=== PATIENT | female | born 1965 | race Caucasian/White ===

== ENCOUNTER 2020-01-24 13:45 | Inpatient (IN) | payer OTHER ==
[2020-01-25] MEDS ORDERED: TYLENOL325 MG PO (09:24)
[2020-01-25] MEDS ORDERED: ALEVE220 MG PO (09:24)
--- NOTE | 2020-01-26 06:46 | PATH ---
[facility] [address] [facility] [place], [place] [address] Signed ORDERING PHYSICIAN: Jose D Kumar MD PATIENT NAME: FRANCINE GILLIS GENDER: F : 1965 SPECIMEN(S): No Source Given MOLECULAR PATHOLOGY RESULTS: SARS-CoV-2 Not Detected ADDITIONAL NOTES.: The Stephenson Fusion SARS-CoV-2 Assay is a multiplex real-time PCR (RT-PCR) in vitro diagnostic test intended for the qualitative detection of RNA from SARS-CoV-2 from individuals who meet COVID-19 clinical and/or epidemiological criteria. In general, SARS-CoV-2 RNA can be detected during the acute phase of infection. Positive results indicate the presence of SARS-CoV-2 RNA. Clinical correlation with patient history and other diagnostic information is necessary to determine patient infection status. Positive results do not rule out bacterial infection or co-infection with other viruses. Negative results do not preclude SARS-CoV-2 infection and should not be used as the sole basis for patient management decisions. Negative results must be combined with other clinical observations, patient history, and epidemiological information. The Stephenson Fusion SARS-CoV-2 Assay is not yet approved or cleared by the [place] FDA. When there are no FDA-approved or cleared tests available, and other criteria are met, FDA can make tests available under an emergency access mechanism called an Emergency Use Authorization (EUA). The EUA for this test is supported by the [place] of Health and Human Service's (HHS's) declaration that circumstances exist to justify the emergency use of in vitro diagnostics for the detection and/or diagnosis of the virus that causes COVID-19. This EUA will remain in effect for the duration of the COVID-19 declaration justifying emergency of IVDs, unless it is terminated or revoked by FDA, after which the test may no longer be used. The Stephenson Fusion SARS-CoV-2 Assay is for use only under EUA in US laboratories certified under the Clinical Laboratory Improvement Amendments of 1988 (CLIA) to perform high complexity tests. [facility] is certified under CLIA to perform high complexity PATIENT NAME: FRANCINE GILLIS VASYL PATHOLOGY DATE OF : [birth year] REPORT #: [id number] PHYSICIAN: RADHA PANDYA PCP: ANGELICA BELTRAN REPORT IS CONFIDENTIAL AND NOT TO BE RELEASED WITHOUT AUTHORIZATION [address] [address] Signed clinical laboratory testing. PERFORMING LABORATORY.: Molecular testing was performed by [facility] [address] [place], [place] [address] [address] ([employer]oner: Marcelo Forte D.O.; CLIA#: [id number]) Diagnostician: System Interface Pathologist Electronically Signed 01/26/2020 Copies: ~ PATIENT NAME: FRANCINE GILLIS VASYL PATHOLOGY DATE OF : [birth year] REPORT #: [id number] PHYSICIAN: RADHA PANDYA PCP: ANGELICA BELTRAN REPORT IS CONFIDENTIAL AND NOT TO BE RELEASED WITHOUT AUTHORIZATION
--- NOTE | 2020-01-26 14:49 | HP ---
[facility] [address] [place], [place] [address] Signed ADMISSION DATE: 01/24/2020 REASON FOR ADMISSION: Acute calculous cholecystitis and possible choledocholithiasis. HISTORY OF PRESENT ILLNESS: This is a 54-year-old white woman, lives in the [place], [place] area. She is known to have gallstones from the past. She recently presented to Dr. Beltran in [place] and subsequently seen today by Dr. Jaramillo as she has had the right subcostal pain and findings typical of biliary colic. Liver enzymes were checked yesterday and repeated today. Previously, the liver enzymes were reasonably normal, but today markedly abnormal with elevated bilirubin of 4.4 and an alkaline phosphatase greater than 600 based on report I have from Dr. Jaramillo. Actual data is still pending. The patient has had no particular nausea or vomiting. Does have persistent epigastric and right subcostal pain. She does have family history of biliary disease in her daughter on whom I performed cholecystectomy several years ago when the daughter was age 15. The patient has had ureteral vaginal prolapse, undergoing a sling repair based on notes I have available from 2005. This involved Dr. Sadie Gillis and Dr. Molina Giron. At present, she denies any shortness of breath or chest pain. She has had no dysuria or hematuria. Her pain is primarily in the right subcostal area and the subscapular area on the right side. SOCIAL HISTORY: She is accompanied by a friend. She lives in [place]. She has adult children. PHYSICAL EXAMINATION: GENERAL: A pleasant white woman, who does not look systemically toxic at all. I do not detect clinical jaundice myself at this time. HEENT: Mucous membranes are slightly dry. Trachea is midline. She has no thyromegaly or cervical adenopathy and no hoarseness. CHEST: Clear. HEART: Regular without murmur. ABDOMEN: Obese. Palpation reveals mild tenderness in the subcostal and the epigastric area. There is no ascites. There is no mass. EXTREMITIES: Show no clubbing, cyanosis, or edema. Electronically Signed By: BERTHA COTE MD 01/26/20 1449 PATIENT NAME: FRANCINE GILLIS HISTORY AND PHYSICAL DATE OF : 63 REPORT #: [id number] PHYSICIAN: BERTHA COTE MD PCP: ANGELICA BELTRAN REPORT IS CONFIDENTIAL AND NOT TO BE RELEASED WITHOUT AUTHORIZATION [facility] [address] [place], [place] [address] Signed LABORATORY STUDIES: From [place] performed yesterday and today are pending. By recollection of her bilirubin being 4.4 today is certain. Alkaline phosphatase is markedly elevated as well. She brings with her a disk of the images of her gallbladder ultrasound. Notes are made that there was no sign of intrahepatic ductal dilatation. The gallbladder did have stones. Common duct size is 4.4 mm to my recollection. ASSESSMENT: The patient has clinical evidence of acute calculous cholecystitis at minimum and probable choledocholithiasis. I discussed with her at great length including using illustrations on her marker board. The pathophysiology of biliary disease as relates to gallstones and the high probability that she has passed stones in the common duct, though she may have passed them through even. Her amylase was noted to be normal. She has no clinical evidence of pancreatitis at this time. At this point, given the late hour of the day at 7:00 p.m. and we will give additional fluid resuscitation, IV antibiotic Ancef, anticipating operation tomorrow, this would include laparoscopic cholecystectomy with cholangiogram, possible laparoscopic common duct exploration. She may require an open procedure for cholecystectomy and/or common duct exploration. The risks of bleeding, infection, bile duct injury, need for open procedure and other unforeseen complications was reviewed in detail. Most certainly, we will have labs done in the morning, particularly Chem profile and CBC and also we will obtain amylase. Improvement of her liver enzymes and bilirubin would be a most welcome finding and suggestive of possible spontaneous clearance of the duct. We will allow clear liquids up to midnight, but after that, n.p.o. We will initiate antibiotic therapy. She does have underlying acute calculous cholecystitis as well. MD JALEESA Bender/MODL /[id number] Electronically Signed By: BERTHA COTE MD 01/26/20 1449 PATIENT NAME: FRANCINE GILLIS HISTORY AND PHYSICAL DATE OF : [birth year] REPORT #: [id number] PHYSICIAN: BERTHA COTE MD PCP: ANGELICA BELTRAN A REPORT IS CONFIDENTIAL AND NOT TO BE RELEASED WITHOUT AUTHORIZATION [address] [address] Signed cc: MD Dr. Kali Garcia Copies: MOLINA JARAMILLO MD ~ Electronically Signed By: BERTHA COTE MD 01/26/20 1449 PATIENT NAME: FRANCINE GILLIS VASYL HISTORY AND PHYSICAL DATE OF : [birth year] REPORT #: [id number] PHYSICIAN: BERTHA COTE MD PCP: ANGELICA BELTRAN REPORT IS CONFIDENTIAL AND NOT TO BE RELEASED WITHOUT AUTHORIZATION
--- NOTE | 2020-01-26 14:49 | OR ---
[facility] [address] [place], [place] [address] Signed DATE OF OPERATION: 01/25/2020 SURGEON: Bertha Cote MD PREOPERATIVE DIAGNOSIS: Acute calculous cholecystitis and probable choledocholithiasis. POSTOPERATIVE DIAGNOSES: 1. 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 2. Very short cystic duct and white bile in gallbladder with multiple impacted stones. 3. Dense inflammatory changes of bryant hepatis. 4. Enlarged pericholedochal lymph node. PROCEDURES: 1. Laparoscopy for laparoscopic cholecystectomy with conversion to open cholecystectomy with intraoperative cholangiogram (prolonged complicated and difficult). 2. Common bile duct exploration. 3. Flexible choledochoscopy with common bile duct biopsy. 4. Placement of T-tube with cholangiogram. ANESTHESIA: General endotracheal; Lv [place] CRNA INDICATIONS: This 54-year-old white woman was referred by Dr. Jaramillo yesterday with findings of markedly elevated liver enzymes, complaints of right upper abdominal pain and back pain, which has been episodic and progressive over quite some time. She does have clinical onset of jaundice. Her bilirubin was 4.4, now about 3.8. She did have elevated liver enzymes including AST, ALT, and alkaline phosphatase. She had two sets of liver enzymes while in [place] showing marked increase of those enzymes. Her amylase was normal. An ultrasound was performed in [place], [place], which showed gallstones within the gallbladder, but no sign of intrahepatic ductal dilatation proper. She was transferred from [place] to this institution yesterday and has undergone fluid resuscitation, IV antibiotic administration, anticipating cholecystectomy and probable common bile duct exploration today. Risks of bleeding, infection, bile duct injury, need for open procedure, need for other indicated procedures also reviewed in detail. Electronically Signed By: BERTHA COTE MD 01/26/20 1449 PATIENT NAME: FRANCINE GILLIS OPERATIVE REPORT DATE OF : 63 REPORT #: [id number] PHYSICIAN: BERTHA COTE MD PCP: ANGELICA BELTRAN REPORT IS CONFIDENTIAL AND NOT TO BE RELEASED WITHOUT AUTHORIZATION [facility] [address] [place], [place] [address] Signed FINDINGS: Market acute and obviously chronic inflammation of the gallbladder was noted with obliteration of the infundibulum of the gallbladder, very markedly dense inflammatory changes in the region of the duodenum. The liver itself was normal. There was no evidence of hemangioma as had been considered likely on ultrasound. Ultimately, it was thought likely that her common duct obstructive findings were related to Mirizzi syndrome (pseudo-obstruction of the common duct) related to impacted stones in the gallbladder. The cystic duct was very short and contracted and nearly contiguous with the common bile duct itself. There was an enlarged pericholedochal lymph node, which was biopsied as well. Flexible choledochoscopy and common duct exploration were undertaken showing no sign of retained stones or obvious neoplasm biopsies. A biopsy was taken of the common duct in the area of maximum inflammation on the possibility this may represent a cholangiocarcinoma, however, that is left likely in hind site. Completion cholangiogram showed good flow of contrast in the duodenum without sign of filling defect. The operation was prolonged, complicated, and difficult lasting over 3 hours. DESCRIPTION OF PROCEDURE: The patient was brought to the operating room, given a general endotracheal anesthetic. Preoperative antibiotic Ancef was given. Sequential compression device stockings used. Heparin subcutaneously administered. The patient's skin did appear somewhat jaundiced. Her bilirubin was 3.8 preoperatively. The abdomen was prepared with a chlorhexidine solution and draped sterilely. An infraumbilical incision was made and using an open Gen cannula technique. Pneumoperitoneum achieved to a level of 14 mmHg of carbon dioxide gas. Intraabdominal inspection showed no sign of ascites or carcinomatosis. The head of the liver looks surprisingly normal. The gallbladder was obscured from view at that point. Three additional trocars were placed in usual configuration in the subxiphoid, right midclavicular, and right anterior axillary line. A two-handed dissection to identify the gallbladder was undertaken showing very dense omental adhesion to the undersurface of the gallbladder. The omentum was essentially fused to much of it. Time was taken to dissect this free as much as possible. Attempts at grasping the gallbladder were unsuccessful due to the dense inflammatory and nature of the gallbladder and at one point, entry at the apex into the gallbladder showed egress of "white bile." This of course is indicative of chronic obstruction of the outlet of the gallbladder. Various maneuvers were undertaken to better expose the gallbladder and elevate the gallbladder cephalad. Further inspection of the infundibulum itself showed dense adhesions and almost contiguous plaque-like changes to the C-loop of the duodenum. It was deemed inadvisable to proceed with a laparoscopic approach under the circumstances and mindful of the obstructive nature of the common duct itself most likely. Electronically Signed By: BERTHA COTE MD 01/26/20 1449 PATIENT NAME: FRANCINE GILLIS [facility] OPERATIVE REPORT DATE OF : 63 REPORT #: [id number] PHYSICIAN: BERTHA COTE MD PCP: ANGELICA BELTRAN REPORT IS CONFIDENTIAL AND NOT TO BE RELEASED WITHOUT AUTHORIZATION [facility] [address] [facility] [place], [place] [address] Signed Operation was converted to an open type. The infraumbilical incision was reapproximated with interrupted 2-0 Vicryl suture as well as running 0 PDS suture. The trocars had been removed in the upper abdomen. The right subcostal incision was made in the usual way, dissecting the subcutaneous tissue with electrocautery, transect the anterior rectus sheath and the rectus abdominis muscle in the posterior sheath and its attendant peritoneum. A Bookwalter retractor was used to provide exposure. Examination of the gallbladder showed to be extremely dense and markedly inflamed. Additional adhesions were taken down with blunt electrocautery dissection. As noted laparoscopically, the lower 1/3rd of the gallbladder was essentially fused with soft tissue in the haily-duodenal area. Palpation in the head of the pancreas showed some dense changes, but no sign of obvious pancreatic cancer. There was certainly no carcinomatosis. Using meticulous care, the peritoneal of the gallbladder was incised anterior and posterior, dissecting it free from the underlying liver, ultimately being able to uncoil it from the lower 3rd of the gallbladder. The very dense and thickened fatty peritoneum over the infundibulum of the gallbladder was freed with meticulous care. Clips were applied to the cystic arterial branches as necessary. Ultimately, entry into the gallbladder was required and extraction of multiple multifaceted stones undertaken. Further dissection toward the midline in the common duct was undertaken, staying close to the gallbladder itself, mindful to avoid a common duct injury or other similar problem. Ultimately the peritoneum overlying the portal triad was incised transversely as it was thickened and this showed good healthy planes of tissue and ultimately, the common hepatic duct. This appeared soft itself, but laterally where the gallbladder cystic duct junction was quite dense. The infundibulum and the cystic duct appeared to be contiguous and extremely short. It appeared probable that her common duct obstructive symptoms were more related to Mirizzi syndrome (pseudo-obstruction of common duct). There was no egress of bile from the cystic duct remnant, which was very well identified. On that basis, cholangiogram was deemed appropriate through the common hepatic duct. A butterfly catheter was inserted into the common hepatic duct and intraoperative cholangiography undertaken. Notably, free flow of contrast was noted into the biliary tree and although the biliary tree was somewhat dilated, flow into the common duct and into the duodenum was forthcoming. There was no clear evidence of neoplasm or retained stone, although there was one area below the presumed entry of the cystic duct. It did have some suspicion of that. Consideration was made for simple closure of the cystic duct infundibulum remnant. However, given the good exposure afforded, a more thorough evaluation, the common duct and its contents was deemed advisable. On that basis, common duct exploration was undertaken. Electronically Signed By: BERTHA COTE MD 01/26/20 1449 PATIENT NAME: FRANCINE GILLIS OPERATIVE REPORT DATE OF : 63 REPORT #: [id number] PHYSICIAN: BERTHA COTE MD PCP: ANGELICA BELTRAN A REPORT IS CONFIDENTIAL AND NOT TO BE RELEASED WITHOUT AUTHORIZATION [address] [address] Signed Two separate 4-0 PDS sutures were applied to the common bile duct directly adjacent to the presumed entry point of the cystic duct. An #11 blade was used to incise the anterior aspect of the common bile duct where it was soft. Egress of clear bile was noted. Beaulieu scissors were used to extend the choledochotomy. There was no obvious stone within the duct at this point. A flexible ureteral scope with video camera was then inserted into the common duct and passed proximally. Bile duct anatomy proximally appeared normal. There was no sign of neoplasm or stone. The scope was manipulated to pass distally into the common bile duct. Again, showing no sign of retained stone or obvious neoplasm. The area at the entry of the cystic duct to the common bile duct was with somewhat fungating appearance but not typical of the common bile duct tumor proper. Nevertheless, biopsy of this area was undertaken. A 14T-Tube was cut to the appropriate configuration and secured into the common bile duct having taper the ends to allow for easy withdrawal of the tube ultimately. The choledochotomy was then repaired with interrupted 4-0 PDS suture. Irrigation of the duct showed no sign of leakage nor sign of egress from the cystic duct infundibulum remnant. This remnant was then over sewed with running horizontal mattress of 3-0 PDS suture and oversewn to allow for complete occlusion if and where the further edema resolved. Plans were then made for cholangiogram once again. Using the T-tube, intraoperative cholangiography with surgeon directed fluoroscopy was undertaken. Free flow of contrast in the biliary tree was noted and again persistence in emptying of the duct into the duodenum. Irrigation undertaken in subhepatic space. Not mentioned previously was mobilization of the C-loop of the duodenum (kocherizing). Palpation in the retroduodenal area and the bryant hepatis revealed a relatively large lymph node at least 2 cm in size. Whether this was related to chronic inflammation or neoplastic disease was uncertain. The pancreatic head itself felt reasonably normal, though it was somewhat inflamed. Notably, her preoperative amylase was normal. Mindful that biopsy of this lymph node may be pivotal and assuring no neoplastic change to the area. A biopsy of this lymph node was undertaken. A good core specimen was obtained. Irrigation was undertaken in the subhepatic space and through one of the trocar sites, a 7 mm flat Tomas drain was placed in the subhepatic space. The T-tube was brought out through a central midline incision without excessive tension, secured to the skin with 2-0 nylon. The omentum was allowed to return to its anatomic position after application of Basim hemostatic agent. Plans were then made for closure. The posterior sheath and its tended peritoneal layer reapproximated with running PDS suture (#1 size). Notably, the medial aspect of the posterior sheath was rather broad and essentially fused. Irrigation was undertaken of the muscular space. Hemostasis assured in the anterior rectus sheath reapproximated with running #1 PDS suture. Subcutaneous tissue was irrigated and the skin closed with running subcuticular 3-0 Vicryl. The infraumbilical incision was reapproximated with Vicryl. Steri-Strips were applied to all wound sites. OpSite dressings were applied to Electronically Signed By: BERTHA COTE MD 01/26/20 1449 PATIENT NAME: FRANCINE GILLIS VASYL OPERATIVE REPORT DATE OF : 63 REPORT #: [id number] PHYSICIAN: BERTHA COTE MD PCP: ANGELICA BELTRAN REPORT IS CONFIDENTIAL AND NOT TO BE RELEASED WITHOUT AUTHORIZATION [address] [address] Signed the drains to provide security and a silver sponge dressing was applied to the subcostal incision. The patient was ultimately extubated and transferred to the recovery room in good condition having suffered no complications. Sponge, needle, and counts reported as correct x3. The operation was considered prolonged, complicated, and difficult lasting more than 3 hours. MD JALEESA Bender/NOHEMIL /[id number] cc: Dr. Kali Jaramillo MD Copies: MENDOZA JARAMILLO MD ~ Electronically Signed By: BERTHA COTE MD 01/26/20 1449 PATIENT NAME: FRANCINE GILLIS VASYL OPERATIVE REPORT DATE OF : 63 REPORT #: [id number] PHYSICIAN: BERTHA COTE MD PCP: ANGELICA BELTRAN REPORT IS CONFIDENTIAL AND NOT TO BE RELEASED WITHOUT AUTHORIZATION
--- NOTE | 2020-01-26 15:59 | PATH ---
[facility] [address] [place], [place] [address] Signed SPECIMEN(S): A GALLBLADDER SPECIMEN(S): B COMMON BILE DUCT SPECIMEN(S): C PERICHOLEDOCHAL LYMPH NODE SPECIMEN SOURCE: A. GALLBLADDER B. COMMON BILE DUCT C. PERICHOLEDOCHAL LYMPH NODE CLINICAL HISTORY: Gallbladder with stones; cholelithiasis, acute calculous cholecystitis. FINAL PATHOLOGIC DIAGNOSIS: A. 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 - Cholelithiasis. B. Common bile duct, biopsy: - Bile duct with mild chronic inflammation within the duct wall. - No evidence of dysplasia or malignancy. C. Lymph node, pericholedochal, biopsy: - Fragment of lymph node tissue adjacent to nerve and fibroadipose tissue with reactive fibrosis. - No evidence of malignancy. COMMENT: As part of [employer]' Quality Improvement Program, parts B and C were reviewed by another member of our pathology staff. NAL:NRT:cml:C2NR MICROSCOPIC EXAMINATION: Histologic sections of all submitted blocks are examined by light microscopy. These findings, together with the gross examination, support the pathologic diagnosis. GROSS DESCRIPTION: Three specimens are received in three containers, labeled "DD." A. The specimen, labeled "DD," and designated on the requisition "gallbladder with stones," is received in formalin and consists of Specimen: Disrupted gallbladder. Dimensions: 6.4 x 3.0 x 2.7 cm. Serosa: Irregular, red-brown, hemorrhagic. PATIENT NAME: FRANCINE GILLIS PATHOLOGY DATE OF : 63 REPORT #: [id number] PHYSICIAN: RADHA PANDYA PCP: ANGELICA BELTRAN REPORT IS CONFIDENTIAL AND NOT TO BE RELEASED WITHOUT AUTHORIZATION [facility] [address] [place], [place] [address] Signed Cystic Duct: Cannot be determined. Calculi: Multiple yellow-chakraborty, multifaceted (3.2 x 3.0 x 1.8 cm in aggregate). Mucosa: Brown-chakraborty, shaggy, and irregular. Wall thickness: 0.4 cm. Lymph node: No pericystic lymph nodes are grossly identified. Additional: Cystic duct margin not grossly identified. [employer] sections are submitted in cassette (A1). B. The specimen, labeled "DD," and designated on the requisition "biopsy common bile duct," is received in formalin and consists of one piece of pink-chakraborty tissue (0.7 x 0.2 x 0.1 cm). The specimen is submitted entirely in cassette (B1). C. The specimen, labeled "DD," and designated on the requisition "haily-choledochal lymph node biopsy," is received in formalin and consists of one core of white-chakraborty tissue (0.6 cm in length x 0.1 cm in diameter). The tissue is inked blue and submitted entirely in cassette (C1). AC (under the direct supervision of a pathologist) The Gross Description was prepared using a voice recognition system. The report was reviewed for accuracy; however, sound-alike word errors, addition and/or deletions may occur. If there is any question about this report, please contact Client Services. PERFORMING LABORATORY: The technical component was performed by [facility] [facility], [address] [place] [id number] ([employer]: Melany Schwarz MD; CLIA# [id number]). Professional interpretation was performed by [employer], [facility], [address] [address] (CLIA# [id number]). Diagnostician: Hermila Shultz MD Pathologist Electronically Signed 01/26/2020 Copies: ~ PATIENT NAME: FRANCINE GILLIS VASYL PATHOLOGY DATE OF : 63 REPORT #: [id number] PHYSICIAN: RADHA PANDYA PCP: ANGELICA BELTRAN REPORT IS CONFIDENTIAL AND NOT TO BE RELEASED WITHOUT AUTHORIZATION
[2020-01-29] MEDS ORDERED: IBUPROFEN600 MG PO (09:30)
[2020-01-29] MEDS ORDERED: OXYCODONE HCL5 MG PO (09:31)
[2020-01-29] MEDS ORDERED: ACETAMINOPHEN500 MG PO (09:31)
[2020-01-29] MEDS ORDERED: LEVAQUIN500 MG PO (09:32)
--- NOTE | 2020-01-29 16:56 | DS ---
[facility] [address] [place], [place] [address] Signed ADMISSION DATE: 01/24/2020 DISCHARGE DATE: 01/29/2020 REASON FOR ADMISSION: This 54-year-old white woman lives in [place], [place], is known to have gallstones from the past. She presented to Dr. Beltran in [place] and subsequently Dr. Jaramillo with right subcostal pain and findings typical of biliary colic. Liver enzymes were checked the day before admission and repeated on the day of admission showing liver enzymes going from normal to markedly elevated with a bilirubin of 4.4, alkaline phosphatase greater than 400. She has received in transport from [place] for further management. PERTINENT PHYSICAL EXAMINATION: GENERAL: Showed a pleasant white woman, who did not look systemically toxic. HEENT: Mucous membranes were slightly dry. Trachea midline. CHEST: Clear. HEART: Regular without murmur. ABDOMEN: Revealed mild tenderness in the subcostal and epigastric area. There is no palpable mass. No ascites. Ultrasound that had been performed, confirmed no sign of intrahepatic ductal dilatation. The gallbladder did have stones and the common duct size was 4.4 mm by report. HOSPITAL COURSE: The patient was given intravenous fluid resuscitation, IV antibiotics, and pain medication. Her elevated liver enzymes and bilirubin were suggestive though not diagnostic of common duct stones notably. She underwent operation on January 25, 2020, which involved laparoscopy with conversion to open operation as the gallbladder was impressively densely inflamed to surrounding tissue and drainage from the gallbladder showed "white bile" indicative of chronic long-standing obstruction of the gallbladder and cystic duct. Open operation was rather difficult, but it was accomplished and confirmed clinical findings of Mirizzi syndrome. This represents cholecystic impaction of stones with pseudo-obstruction of the common bile duct. Common bile duct exploration was undertaken as well and a T-tube placed. There were no stones in the common duct, only the impaction of stones within the gallbladder causing impression on the common duct given the appearance of duct obstruction by extrinsic compression. A T-tube was left in the common duct as was an accessory drain. She felt immediately much better postoperatively. The bile from the T-tube was allowed to drain tube collection device and the accessory drain showed no sign of bile leak. The T-tube was later capped off, which did not result in symptoms and no Electronically Signed By: BERTHA COTE MD 01/29/20 1656 PATIENT NAME: FRANCINE GILLIS DISCHARGE SUMMARY DATE OF : 63 REPORT #: [id number] PHYSICIAN: BERTHA COTE MD PCP: ANGELICA BELTRAN REPORT IS CONFIDENTIAL AND NOT TO BE RELEASED WITHOUT AUTHORIZATION [facility] [address] [place], [place] [address] Signed sign of leakage from the accessory drain. The accessory drain was removed. Liver enzymes were followed and were sequentially improving and bilirubin completely back to normal. By the day of discharge, she is ambulating well, tolerating a regular diet has minimal incisional pain, the T-tube was well secured and capped off. The accessory drain has been removed. It is a plan that she will return on February 14 in the morning to have T-tube cholangiogram with Levaquin 500 mg prior to the study and see me in the afternoon of the same day for T-tube removal as long as there is no contraindication to do so based on T-tube cholangiogram findings. She is instructed to lift no more than 20 pounds for the next month. She will keep Steri-Strips on and is permitted to shower. She should not drive if taking opiate medication. Of special note, a biopsy of an enlarged pericholedochal lymph node was undertaken as well as biopsy of the common duct to assess for malignancy. Both of these showed no evidence of malignancy. DISCHARGE DIAGNOSES: 1. Acute on chronic severe cholecystitis with gallstones and pseudo-obstruction of common duct (Mirizzi syndrome). 2. Status post laparoscopy with conversion to open cholecystectomy, common duct exploration, flexible choledochoscopy common duct, placement of T-tube and accessory drain on January 25, 2020. 3. Biopsy of common bile duct and biopsy of periportal lymph node (benign). DISCHARGE MEDICATIONS: Include: 1. Ibuprofen 600 mg p.o. q.6 hours p.r.n. pain #60. 2. Oxycodone 5 mg every 6 hours as needed for pain 5-10 mg #10, no refill. 3. Tylenol 500 mg tablet two tablets p.o. q.6 hours as needed for pain #60. 4. Levaquin 500 mg tablet to take the morning of plan T-tube cholangiogram on February 15, 2020. She will discontinue Naprosyn for the time being. Bertha Cote MD Electronically Signed By: BERTHA COTE MD 01/29/20 1656 PATIENT NAME: FRANCINE GILLIS VASYL DISCHARGE SUMMARY DATE OF : 63 REPORT #: [id number] PHYSICIAN: BERTHA COTE MD PCP: ANGELICA BELTRAN REPORT IS CONFIDENTIAL AND NOT TO BE RELEASED WITHOUT AUTHORIZATION [facility] [address] [place] [address] Signed /NOHEMI /[id number] cc: MD Pat Sears MD Copies: MENDOZA JARAMILLO MD, CYNTHIA SUE MD ~ Electronically Signed By: BERTHA COTE MD 01/29/20 1656 PATIENT NAME: FRANCINE GILLIS VASYL DISCHARGE SUMMARY DATE OF : 63 REPORT #: [id number] PHYSICIAN: BERTHA COTE MD PCP: ANGELICA BELTRAN REPORT IS CONFIDENTIAL AND NOT TO BE RELEASED WITHOUT AUTHORIZATION
== END 2020-01-29 10:45 | disposition home or self-care (01) | DRG 413 ==
LOC: EDSTATUS 13:45 → MS 16:12
PROVIDERS: ADMIT Surgery
PROC: BF101ZZ Fluoroscopy of Bile Ducts using Low Osmolar Contrast (ICD-10-PCS; 2020-01-25)
PROC: 0FB94ZX Excision of Common Bile Duct, Percutaneous Endoscopic Approach, Diagnostic (ICD-10-PCS; 2020-01-25)
PROC: 0FT40ZZ Resection of Gallbladder, Open Approach (ICD-10-PCS; principal; 2020-01-25 13:45)
PROC: 0F9940Z Drainage of Common Bile Duct with Drainage Device, Percutaneous Endoscopic Approach (ICD-10-PCS; 2020-01-25 13:45)
PROC: 0FJ44ZZ Inspection of Gallbladder, Percutaneous Endoscopic Approach (ICD-10-PCS; 2020-01-25 13:45)
DX: K80.47 Calculus of bile duct with acute and chronic cholecystitis with obstruction (principal); Z20.828 Contact with and (suspected) exposure to other viral communicable diseases; Z53.31 Laparoscopic surgical procedure converted to open procedure
CPT/HCPCS: 00790; 36415; 74300; 80053; 82150; 82247; 82465; 83615; 84100; 84478; 84550; 85025; A9270; C9803; J0690; J1100; J1170; J1644; J1885; J2001; J2250; J2270; J2405; J2704; J3010; J7121; Q9967

== ENCOUNTER 2024-10-06 08:37 | Day surgery (SDC) | payer OTHER ==
[~2024-10-06] VITALS: Ht 167.6 cm; Wt 78.2 kg
[~2024-10-06 08:37] MED LIST: ACETAMINOPHEN500 MG PO; ALEVE220 MG PO; IBLOOD GLUCOSE TEST STRIP 1 EA TEST VI PRN; IBUPROFEN600 MG PO; LACTATED RINGER'S 1,000 ML IV SCH; LEVAQUIN500 MG PO; LIDOCAINE HCL 1% 5 ML SDV INJ ONE; LUNESTA2 MG PO; MIDAZOLAM HCL 5 MG/5 ML VIAL IV PRN; MOUNJARO2.5 MG/0.5 SUB-Q; MULTIPLE VITAM1 EAC2 PO; OXYCODONE HCL5 MG PO; TYLENOL325 MG PO; fentaNYL citrate 100 MCG/2 ML VIAL IV PRN
[2024-10-06 08:58] VITALS: BP 141/78
[2024-10-06] MEDS ORDERED: CEREFOLIN TABL1 EACH PO (09:01)
[2024-10-06] MEDS ORDERED: VITAMIN D310 MC4 PO (09:01)
--- NOTE | 2024-10-06 10:28 | NUR ---
1028 PT UPDATED ON WAIT TIME, PT AGREEABLE AT THIS TIME. PT IN BED WITH CALL LIGHT WITHIN REACH, AND PERSONAL ITEMS WITHIN REACH.
[2024-10-06] MEDS ORDERED: MIDAZOLAM HCL 5 MG/5 ML VIAL ONE (11:17)
[2024-10-06] MEDS ORDERED: fentaNYL citrate 100 MCG/2 ML VIAL ONE (11:17)
[2024-10-06 12:16] VITALS: BP 129/88
--- NOTE | 2024-10-06 12:20 | NUR ---
10/06/24 1220 Shirin Calderon 1158-PTARRIVES TO PACU VIA STRETCHER, RESTING ON LT SIDE, PT A+OX4, DENIES PAIN OR NAUSEA, VSS ON 2L VIA NC. PT ENCOURAGED TO PASS GAS. 1200-PT TITRATED TO RA, VS REMAIN STABLE. 1205- AT BEDSIDE DISCUSSING PROCEEDURE RESULTS AND PLAN OF CARE W/ PT, ALL QUESTIONS ANSWERED. 1215-PT SITTING UP IN BED SIPPING ON WATER, DENIES PAIN OR NAUSEA, VSS ON RA.
--- NOTE | 2024-10-08 12:32 | OR ---
[facility] [address] [place], [place] [address] Signed DATE OF OPERATION: 10/06/2024 SURGEON: Bertha Cote MD PREOPERATIVE DIAGNOSIS: Colon screening. POSTOPERATIVE DIAGNOSES: 1. Polyps x2 (cecum and right colon). 2. Diverticulosis, sigmoid (minimal). PROCEDURE: Total colonoscopy to cecum with cold snare polypectomy x1 and cold morcellation polypectomy x1. ANESTHESIA: Intravenous sedation fentanyl 200 mcg and Versed 8 mg. INDICATION: This 59-year-old white woman is a patient of Dr. Lizett Melo. She has never had colon evaluation in the past. She is here to undergo screening colonoscopy. She has no current symptoms of bleeding, diarrhea constipation and no family history of colon cancer. She understands the risk of colonoscopy including but not limited to bleeding, infection, and perforation and wished to proceed. FINDINGS: The prep was quite good. Complete colonoscopy was undertaken of the cecum without problem. She had a few scattered diverticula of the sigmoid colon and two polyps, one in the cecum. The other in the distal right colon. Both were excised. There were no complications. DESCRIPTION OF PROCEDURE: The patient was brought to the endoscopy suite and placed in lateral decubitus position, given intravenous sedation to the point of slurred speech and nystagmus with full cardiopulmonary monitoring. Digital rectal examination was normal. Olympus video colonoscope was passed in the rectum and manipulated through the sigmoid, showing a few scattered diverticula. The scope was ultimately passed to the cecum. The ileocecal valve and appendiceal orifice were normal. A small polyp was noted in the distal cecum, which was excised with cold snare technique. Further withdrawal of scope Electronically Signed By: BERTHA COTE MD 10/08/24 1232 PATIENT NAME: FRANCINE GILLIS OPERATIVE REPORT DATE OF : 63 REPORT #: [id number] PHYSICIAN: BERTHA COTE MD PCP: LIZETT MELO MD REPORT IS CONFIDENTIAL AND NOT TO BE RELEASED WITHOUT AUTHORIZATION [facility] [address] [place] [address] Signed showed a small polyp of the distal ascending colon which was excised with cold morcellation technique. Withdrawal of the scope throughout the remaining colon showed no other sign of polyps or colitis, only a few scattered diverticula of the sigmoid. Retroflexed view of the rectum was normal. Scope was removed. The patient was taken to the recovery room in good condition. CONCLUDING DIAGNOSIS: Polyps x2 and minimal diverticulosis. PLAN: Recommend repeat colonoscopy in 7 to 10 years based on current recommendations and should be done sooner if symptoms should warrant. Would recommend also high-fiber diet as related to the diverticulosis. She will return to the ongoing care of Dr. Lizett Melo. MD JALEESA Bender/TYRELL /[id number] cc: Dr. Lizett Melo Copies: ~ Electronically Signed By: BERTHA COTE MD 10/08/24 1232 PATIENT NAME: FRANCINE GILLIS OPERATIVE REPORT DATE OF : 63 REPORT #: [id number] PHYSICIAN: BERTHA COTE MD PCP: LIZETT MELO MD REPORT IS CONFIDENTIAL AND NOT TO BE RELEASED WITHOUT AUTHORIZATION
--- NOTE | 2024-10-10 11:00 | PATH ---
[facility] [address] [facility] [place], [place] [address] Signed SPECIMEN(S): A CECUM POLYP SPECIMEN(S): B RIGHT COLON POLYP SPECIMEN SOURCE: A. CECUM POLYP B. RIGHT COLON POLYP CLINICAL HISTORY: Pre-: Initial screening colonoscopy, family history of colon CA. Post: Diverticuli and polyps x 2 FINAL PATHOLOGIC DIAGNOSIS: A. Cecum, polypectomy: - Tubular adenoma B. Colon, right, polypectomy: - Colonic mucosa with no significant pathologic changes BRP MICROSCOPIC EXAMINATION: Histologic sections of all submitted blocks are examined by light microscopy. These findings, together with the gross examination, support the pathologic diagnosis. GROSS DESCRIPTION: A. The specimen, labeled and designated "Rderty, D, cecum polyp," is received in formalin and consists of one chakraborty soft tissue fragment, 0.4 cm. Entirely submitted in (A1). B. The specimen, labeled and designated "Doughterty, D, right colon polyp," is received in formalin and consists of one chakraborty soft tissue fragment, 0.3 cm. Entirely submitted in (B1). AB (under the direct supervision of a pathologist) The Gross Description was prepared using a voice recognition system. The report was reviewed for accuracy; however, sound-alike word errors, addition and/or deletions may occur. If there is any question about this report, please contact Client Services. ADDITIONAL NOTES: Immunohistochemical and/or in situ hybridization studies if performed in this case included appropriate positive controls that reacted as expected. This test was developed and its performance characteristics determined by [facility]. It has not been cleared or PATIENT NAME: FRANCINE GILLIS PATHOLOGY DATE OF : 63 REPORT #: [id number] PHYSICIAN: RADHA PATHOLOGY PCP: KARI MELO MD REPORT IS CONFIDENTIAL AND NOT TO BE RELEASED WITHOUT AUTHORIZATION [address], [place] [address] Signed approved by the U.S. Food and Drug Administration. The FDA has determined that such clearance or approval is not necessary. This test is used for clinical purposes. It should not be regarded as investigational or for research. [facility] is certified under the Clinical Laboratory Improvement Amendments of 1988 (CLIA) as qualified to perform high complexity clinical laboratory testing. PERFORMING LABORATORY: Technical component was performed by [facility], [address] [place] [id number] (CLIA# [id number]). Professional interpretation was performed by [facility], [address] [place] [address] (CLIA#:[id number]). Diagnostician: Sage Olmos MD Pathologist Electronically Signed 10/10/2024 Copies: ~ PATIENT NAME: FRANCINE GILLIS PATHOLOGY DATE OF : 63 REPORT #: [id number] PHYSICIAN: RADHA PATHOLOGY PCP: KARI MELO MD REPORT IS CONFIDENTIAL AND NOT TO BE RELEASED WITHOUT AUTHORIZATION
== END 2024-10-06 12:27 | disposition home or self-care (01) ==
LOC: OPS 08:37 → DS 08:38 → OPS 09:45 → DS 09:45 → OPS 10:55
PROVIDERS: ATTEND Surgery
PROC: 0DBH8ZZ Excision of Cecum, Via Natural or Artificial Opening Endoscopic (ICD-10-PCS; 2024-10-06)
PROC: 0DBK8ZZ Excision of Ascending Colon, Via Natural or Artificial Opening Endoscopic (ICD-10-PCS; principal; 2024-10-06 10:55)
DX: Z12.11 Encounter for screening for malignant neoplasm of colon (principal); D12.0 Benign neoplasm of cecum; K63.5 Polyp of colon; K57.30 Diverticulosis of large intestine without perforation or abscess without bleeding; Z79.899 Other long term (current) drug therapy; Z90.49 Acquired absence of other specified parts of digestive tract; Z90.710 Acquired absence of both cervix and uterus
CPT/HCPCS: 99153; G0500; J2250; J3010; J7121